=== PATIENT | female | born 1980 | race Two or more races ===

== ENCOUNTER 2021-07-22 10:34 | Outpatient (CLI) | payer OTHER | END 2021-07-22 10:35 | disposition home or self-care (01) | LOC: LAB 10:34 | PROVIDERS: ATTEND Radiology Diagnostic Radiology | DX: R31.21 Asymptomatic microscopic hematuria (principal) ==

== ENCOUNTER 2021-07-28 07:10 | Outpatient (CLI) | payer OTHER | END 2021-07-28 07:25 | disposition home or self-care (01) | LOC: TOM 07:10 | PROVIDERS: ATTEND Urology | DX: K59.09 Other constipation (principal); N28.89 Other specified disorders of kidney and ureter; R31.21 Asymptomatic microscopic hematuria ==

== ENCOUNTER 2022-04-01 21:21 | Emergency (ER) | payer OTHER ==
[~2022-04-01] VITALS: Ht 154.9 cm; Wt 68.0 kg
[2022-04-01] MEDS ORDERED: LIPITOR20 MG PO (21:54)
[2022-04-01] MEDS ORDERED: DIOVAN40 MG PO (21:54)
[2022-04-01] MEDS ORDERED: ONDANSETRON HCL4 MG PO (23:39)
[2022-04-01] MEDS ORDERED: INTESTINEX680 M1 PO (23:39)
[2022-04-01] MEDS ORDERED: PEPCID AC20 MG PO (23:39)
== END 2022-04-02 01:28 | disposition home or self-care (01) ==
LOC: ER 21:21
DX: K52.89 Other specified noninfective gastroenteritis and colitis (principal); A05.9 Bacterial foodborne intoxication, unspecified; R11.10 Vomiting, unspecified